=== PATIENT | female | born 1960 | race Caucasian/White ===

== ENCOUNTER 2021-12-26 09:08 | Outpatient (CLI) | payer OTHER, SELFPAY ==
--- NOTE | ~2021-12-26 | MMUS_ITS ---
EXAMINATION: MM diagnostic perla RT w lenore, US breast RT complete HISTORY: Reportedly abnormal outside 05/24/2021 mammogram examination TECHNIQUE: Full field and spot 3-D tomosynthesis images of the right breast were performed and synthe tic 2-D images were generated. CAD analysis was submitted and interpreted. High resolution complete r ight breast ultrasound including all 4 quadrants and subareolar area was performed. COMPARISON: 05/24/2021 bilateral screening mammogram 06/2014 bilateral diagnostic mammography and bilateral breast ultrasound examination 04/23/2014 bilateral screening mammogram BREAST PARENCHYMAL COMPOSITION: The breasts are heterogeneously dense, which may obscure small masses . FINDINGS: MAMMOGRAPHIC FINDINGS: There is a biopsy marker in the upper outer right breast; history of prior benign right breast biopsy . There are scattered benign calcifications. No suspicious mass, architectural distortion, malignant calcification, skin thickening or retraction is detected. ULTRASOUND: 3:00 4 cm from nipple: 3.6 x 3.1 mm sonolucency with through transmission posterior enhancement consi stent with small cyst 10:00 5 cm from nipple: Parallel circumscribed hypoechoic solid lesion measuring 2.3 x 5.8 x 6.6 mm, without posterior shadowing; the sonographic features are benign Right axilla: 5.9 x 2.7 x 6.5 mm circumscribed benign-appearing lymph node IMPRESSION: 1. Benign findings; no mammographic evidence of malignancy 2. Routine annual mammographic screening is recommended BI-RADS Category 2: Benign finding(s). Reviewed, dictated and finalized at location A. IMPRESSION: 1. Benign findings; no mammographic evidence of malignancy 2. Routine annual mammographic screening is recommended BI-RADS Category 2: Benign finding(s).
== END 2021-12-26 09:09 | disposition home or self-care (01) ==
LOC: CHSIMG 09:09
PROVIDERS: PCP Family Medicine; Visit Provider Family Medicine
DX: R92.8 Other abnormal and inconclusive findings on diagnostic imaging of breast (principal)
CPT/HCPCS: 76641; 77061; 77065; G0279